=== PATIENT | female | born 1960 | race Caucasian/White ===

== ENCOUNTER → 2021-05-29 | Day surgery (SDC) | payer OTHER ==
[~2021-05-29] VITALS: Ht 165.1 cm; Wt 117.9 kg
[~2021-05-29] MED LIST: ASPIRIN EC81 MG PO; CITRATE OF MAG296 ML PO; CRANBERRY200 MG PO; FLAXSEED1000 MG PO; HCTZ25 MG PO; KLOR-CON 1010 MEQ PO; LEXAPRO 10MG TA10 MG PO; ODOR FREE GARL1 EAC1 PO; OSTEO BI-FLEX1 EAC3 PO; PROBIOTIC1 EAC1 PO; PROTONIX 40MG T40 MG PO; TURMERIC COMPL1 EACH PO; WELLBUTRIN XL150 MG PO; WOMEN'S DAILY1 EAC1 PO; ZYRTEC10 M3 PO
[2021-05-29 13:46] LABS: HCT 34.4 % (37.0-47.0); HGB 11.8 g/dl (12.5-16.0); MCH 31.6 pg (25.0-31.0); MCHC 34.3 g/dL (32.0-36.0); MCV 92.2 fL (78.0-100.0); MPV 9.1 fL (6.0-9.5); RBC 3.73 M/uL (4.20-5.40); WBC 5.4 K/uL (4.0-10.5)
[2021-05-29 13:59] LABS: BUN/CREAT RATIO (CALC) 21.1 RATIO; CREATININE 0.76 mg/dL (0.51-0.95)
== END | disposition home or self-care (01) ==
LOC: FAS 11:58
PROVIDERS: Obstetrics & Gynecology
DX: N84.0 Polyp of corpus uteri (principal); N95.0 Postmenopausal bleeding; G47.30 Sleep apnea, unspecified; M19.90 Unspecified osteoarthritis, unspecified site; F32.A Depression, unspecified; K21.9 Gastro-esophageal reflux disease without esophagitis; E66.9 Obesity, unspecified; Z68.41 Body mass index [BMI] 40.0-44.9, adult; Z99.89 Dependence on other enabling machines and devices; Z79.82 Long term (current) use of aspirin; Z88.1 Allergy status to other antibiotic agents; Z79.899 Other long term (current) drug therapy; Z90.710 Acquired absence of both cervix and uterus; Z72.89 Other problems related to lifestyle; Z80.49 Family history of malignant neoplasm of other genital organs
CPT/HCPCS: 36415; 80048; 86850; 86900; 86901; 93005; J1885; J2250; J2405; J2704; J3010; J7120